=== PATIENT | female | born 1995 | race Caucasian/White ===

== ENCOUNTER 2023-05-07 20:41 | Emergency (ER) | payer BC, OTHER ==
[2023-05-07 20:51] VITALS: BP 133/93; PULSE 89; RESP 18; TEMP 97.7
--- NOTE | 2023-05-07 22:01 | ED ---
Female Urogenital HPI - General Chief complaint: Urogenital Stated complaint: Week late for period, negative tests Time Seen by Provider: 05/07/23 20:52 Source: patient Mode of arrival: ambulatory Limitations: no limitations - History of Present Illness Initial comments: 27-year-old female presenting with chief complaint of "my period is a week lat e". Patient states he has taken a few urine tests at home which have been negative. She is concerned as to why her period is late. She states that for the past 2 months her menstrual cycles have been very heavy and she has had increased abdominal pain with these. At this time she has no vaginal bleeding or pelvic pain. No nausea vomiting fevers or vaginal discharge. Patient has no other complaints. - Related Data Allergies Allergy/AdvReac Type Severity Reaction Status Date / Time No Known Allergies Allergy Verified 05/07/23 20:45 Review of Systems ROS Statement: Those systems with pertinent positive or pertinent negative responses have been documented in the HPI. ROS Other: All systems not noted in ROS Statement are negative. Past Medical History Past Medical History: No Reported History History of Any Multi-Drug Resistant Organisms: None Reported Past Surgical History: No Surgical Hx Reported Past Psychological History: No Psychological Hx Reported Smoking Status: Never smoker Past Alcohol Use History: Occasional Past Drug Use History: None Reported General Exam Limitations: no limitations General appearance: alert, in no apparent distress Head exam: Present: atraumatic, normocephalic Eye exam: Present: normal appearance, EOMI Neck exam: Present: normal inspection Respiratory exam: Present: normal lung sounds bilaterally. Absent: respiratory distress, wheezes, rales, rhonchi, stridor Cardiovascular Exam: Present: regular rate, normal rhythm, normal heart sounds. Absent: systolic murmur, diastolic murmur, rubs, gallop, clicks Neurological exam: Present: alert, oriented X3 Psychiatric exam: Present: normal affect, normal mood Skin exam: Present: warm, dry Course Vital Signs 05/07/23 20:41 Temperature 97.7 F Pulse Rate 89 Respiratory 18 Rate Blood Pressure 133/93 O2 Sat by Pulse 98 Oximetry Medical Decision Making - Medical Decision Making Was pt. sent in by a medical professional or institution (, PA, SHEET [employer]ER, urgent care, hospital, or correction...) When possible be specific @ -No Did you speak to anyone other than the patient for history (EMS, parent, family, police, friend...)? What history was obtained from this source @ -No Did you review nursing and triage notes (agree or disagree)? Why? @ -I reviewed and agree with nursing and triage notes Were old charts reviewed (outside hosp., previous admission, EMS record, old EKG, old radiological studies, urgent care reports/EKG's, correction records)? Report findings @ -No old charts were reviewed Differential Diagnosis (chest pain, altered mental status, abdominal pain women, abdominal pain men, vaginal bleeding, weakness, fever, dyspnea, syncope, headache, dizziness, GI bleed, back pain, seizure, CVA, palpatations, mental health, musculoskeletal)? @ -Differential includes , PCOS, stress, hormonal imbalance, this is not an all inclusive list EKG interpreted by me (3pts min.). @ -As above X-rays interpreted by me (1pt min.). @ -None done CT interpreted by me (1pt min.). @ -None done U/S interpreted by me (1pt. min.). @ -None done What testing was considered but not performed or refused? (CT, X-rays, U/S, labs)? Why? @ -None What meds were considered but not given or refused? Why? @ -None Did you discuss the management of the patient with other professionals (professionals i.e. , PA, SHEET L[employer]ER, lab, RT, psych nurse, social media assistant, electronic wirer, teacher, corporate ethics officer, case folder)? Give summary @ -No Was smoking cessation discussed for >3mins.? @ -No Was critical care preformed (if so, how long)? @ -No Were there social determinants of health that impacted care today? How? (Homelessness, low income, unemployed, alcoholism, drug addiction, transportation, low edu. Level, literacy, decrease access to med. care, detention, re hab)? @ -No Was there de-escalation of care discussed even if they declined (Discuss DNR or withdrawal of care, Hospice)? DNR status @ -No What co-morbidities impacted this encounter? (DM, HTN, Smoking, COPD, CAD, Cancer, CVA, ARF, Chemo, Hep., AIDS, mental health diagnosis, sleep apnea, morbid obesity)? @ -None Was patient admitted / discharged? Hospital course, mention meds given and route, prescriptions, significant lab abnormalities, going to OR and other pertinent info. @ -27-year-old female presenting for evaluation due to her menstrual cycle being one week late. She had negative tests at home. No other complaints. History and physical exam were conducted. Serum hCG is negative. Patient is instructed to follow-up with REVIEW SCHEDULING COORDINATOR. Follow-up with PCP. Report back to ER with any new or worsening symptoms. Discussed return parameters and answered all questions. Patient conveyed verbal understanding and agreed to the plan. I discussed this case in detail with my attending Dr. Barros Undiagnosed new problem with uncertain prognosis? @ -No Drug Therapy requiring intensive monitoring for toxicity (Heparin, Nitro, Insulin, Cardizem)? @ -No Were any procedures done? @ -No Diagnosis/symptom? @ -Negative test Acute, or Chronic, or Acute on Chronic? @ -Acute Uncomplicated (without systemic symptoms) or Complicated (systemic symptoms)? @ -Uncomplicated Side effects of treatment? @ -No Exacerbation, Progression, or Severe Exacerbation? @ -No Poses a threat to life or bodily function? How? (Chest pain, USA, IA, pneumonia, PE, COPD, DKA, ARF, appy, cholecystitis, CVA, Diverticulitis, Homicidal, Suicidal, threat to staff... and all critical care pts) @ -No - Lab Data Lab Results 05/07/23 Range/Units 21:06 HCG, Qual Not Detected Disposition Clinical Impression: Negative test Disposition: HOME SELF-CARE Condition: Good Additional Instructions: Follow-up with REVIEW SCHEDULING COORDINATOR. Report back to ER with any new or worsening symptoms. Is patient prescribed a controlled substance at d/c from ED?: No Referrals: Johnnie Thomas MD [Primary Care Provider] - 1-2 days Michael Richter MD [STAFF PHYSICIAN] - 1-2 days Time of Disposition: 22:01
== END 2023-05-07 22:06 | disposition home or self-care (01) ==
LOC: EC 20:41
DX: Z32.02 Encounter for pregnancy test, result negative (principal)
CPT/HCPCS: 36415; 84703; 99283

== ENCOUNTER → 2023-06-23 | Outpatient (CLI) | payer BC, OTHER ==
--- NOTE | 2023-06-23 16:08 | US ---
EXAMINATION TYPE: US pelvis complete transvag DATE OF EXAM: 06/23/2023 COMPARISON: NONE CLINICAL INDICATION: Female, 27 years old with history of N83.209 Ovarian Cyst; Hx Heavy menses with clots, left pelvic pain/burning with last cycle TECHNIQUE: . Transabdominal sonographic images of the pelvis were acquired. Transvaginal sonographi c images were medically necessary to better assess the following anatomy: Ovaries Date of LMP: 06/10/2023 EXAM MEASUREMENTS: Uterus: 8.1 x 3.6 x 4.1 cm Endometrial Stripe: 0.8 cm Right Ovary: 3.0 x 2.3 x 1.8 cm Left Ovary: 2.0 x 3.0 x 2.9 cm 1. Uterus: Anteverted wnl 2. Endometrium: wnl 3. Right Ovary: wnl 4. Left Ovary: wnl 5. Bilateral Adnexa: wnl 6. Posterior cul-de-sac: wnl IMPRESSION: 1. No evidence of ovarian torsion. Mass. 2. Normal appearance of uterus and endometrium.
== END | disposition home or self-care (01) ==
LOC: RADUSWWP 15:28
PROVIDERS: ATTEND Family Medicine
DX: N83.209 Unspecified ovarian cyst, unspecified side (principal); N93.9 Abnormal uterine and vaginal bleeding, unspecified
CPT/HCPCS: 76830; 76856

== ENCOUNTER 2024-07-26 03:46 | Outpatient (CLI) | payer BC, OTHER ==
[2024-07-26 05:22] VITALS: PULSE 75; RESP 16; TEMP 98
== END 2024-07-26 04:50 | disposition home or self-care (01) ==
LOC: FBPOP 03:46
PROVIDERS: ATTEND Obstetrics & Gynecology
DX: Z53.9 Procedure and treatment not carried out, unspecified reason (principal)
CPT/HCPCS: 59025; 99215